=== PATIENT | female | born 1975 | race Hispanic/Latino ===

== ENCOUNTER → 2024-07-17 | Day surgery (SDC) | payer OTHER ==
[~2024-07-17] MED LIST: FENTANYL CITRATE/PF 100MCG/2 ML INJ ONE; LANSOPRAZOLE30 MG PO; LIDOCAINE HCL 2% LOCAL INJ 5 ML SDV VIAL INJ ONE; ONE DAILY TABL1 EAC1 PO; PIOGLITAZONE-M1 EAC1 PO; PROPOFOL IV EMULSION 10 MG/ML 20 ML VIAL ONE; VITAMIN D3125 MCG PO
[2024-07-17] MEDS: LACTATED RINGER'S 1,000 ML ONE (09:33)
[2024-07-17 12:10] VITALS: TEMP 98.3
[2024-07-17 12:40] VITALS: BP 114/72; PULSE 68; RESP 16; O2SAT 99
== END | disposition home or self-care (01) ==
LOC: OR 08:34
PROVIDERS: ATTEND Internal Medicine Gastroenterology
DX: Z12.11 Encounter for screening for malignant neoplasm of colon (principal); D12.4 Benign neoplasm of descending colon; K29.50 Unspecified chronic gastritis without bleeding; K31.89 Other diseases of stomach and duodenum; K44.9 Diaphragmatic hernia without obstruction or gangrene; K21.9 Gastro-esophageal reflux disease without esophagitis; E11.9 Type 2 diabetes mellitus without complications; E78.5 Hyperlipidemia, unspecified; Z01.810 Encounter for preprocedural cardiovascular examination; Z79.84 Long term (current) use of oral hypoglycemic drugs; Z79.899 Other long term (current) drug therapy; Z86.19 Personal history of other infectious and parasitic diseases
CPT/HCPCS: 43239; 45385; 93005; J2003; J2704; J3010; J7121; 45378

== ENCOUNTER → 2024-07-30 | Outpatient (REF) | payer OTHER ==
[~2024-07-30] MED LIST changes: -FENTANYL CITRATE/PF 100MCG/2 ML INJ ONE; -LIDOCAINE HCL 2% LOCAL INJ 5 ML SDV VIAL INJ ONE; -PROPOFOL IV EMULSION 10 MG/ML 20 ML VIAL ONE
== END ==
LOC: US 12:36
PROVIDERS: ATTEND Internal Medicine Gastroenterology
DX: K76.89 Other specified diseases of liver (principal)
CPT/HCPCS: 76700

== ENCOUNTER 2025-01-22 10:44 | Emergency (ER) | payer OTHER ==
[~2025-01-22] VITALS: Ht 157.5 cm; Wt 62.3 kg
[2025-01-22 10:45] VITALS: PULSE 84; RESP 20; TEMP 98.2
[2025-01-22] MEDS: IBUPROFEN 600 MG TAB PO STA (11:06)
[2025-01-22] MEDS ORDERED: ACETAMINOPHEN-1 EAC4 PO (12:41)
[2025-01-22 12:46] VITALS: BP 114/63; PULSE 68; RESP 20; TEMP 97.9; O2SAT 98
== END 2025-01-22 12:52 | disposition home or self-care (01) ==
LOC: FSED 10:48
DX: S52.592A Other fractures of lower end of left radius, initial encounter for closed fracture (principal); W18.39XA Other fall on same level, initial encounter; Y93.01 Activity, walking, marching and hiking; Y92.89 Other specified places as the place of occurrence of the external cause
CPT/HCPCS: 36415; 82948; 99284